=== PATIENT | female | born 1965 | race Caucasian/White ===

== ENCOUNTER 2024-12-08 11:31 | Outpatient (REF) | payer MEDICARE, MEDICAID, SELFPAY ==
[2024-12-08 17:00] LABS: Resp Syncy Virus RNA Qual PCR NEGATIVE (Negative); SARS COV2 PCR INHOUSE NEGATIVE (Negative)
== END 2024-12-08 11:32 | disposition home or self-care (01) ==
LOC: HO.LAB 11:31
PROVIDERS: Nurse Practitioner Family; PCP Internal Medicine
DX: R42 Dizziness and giddiness (principal); R11.2 Nausea with vomiting, unspecified; R63.0 Anorexia; R52 Pain, unspecified; Z79.899 Other long term (current) drug therapy
CPT/HCPCS: 87637; 99212

== ENCOUNTER 2024-12-08 11:31 | Outpatient (AMB) | payer MEDICARE, MEDICAID, SELFPAY ==
--- NOTE | 2024-12-08 11:56 | AM.OFFWIN_ITS ---
Intake Vital Signs 12/08/24 11:58 Height 5 ft Weight 147 lb BMI 28.7 BP 106/70 Blood Pressure Location Rt brachial Position Sitting Pulse 106 H Pulse Source Pulse Oximeter Temp 98.1 F Temp Source Oral Pulse Oximetry (%) 99 Oxygen Delivery Method Room Air Intake Visit Reasons: EP Body aches, dizzy, nausea Intake Note: pt presents with body aches, dizziness and nausea without vomiting for 5 days Allergies No Known Allergies Allergy (Verified 12/08/24 11:59) Medication List - Last Reconciled 12/08/24 by Mindy June NP amitriptyline 25 mg PO BEDTIME escitalopram oxalate 10 mg PO DAILY famotidine 20 mg PO DAILY PRN metoprolol succinate ER 25 mg PO DAILY Do you need a note to return to daycare/school/sports/work: No HPI HPI Comments History of Present Illness Details 59 y/o female presents with 5 days of UR I symptoms. Reports generalized body aches, dizziness, nausea, vomiting, and poor appetite. Unable to keep food or fluids down. Recently received COVID and influenza vaccines. Denies recent sick contacts. Has been resting and hydrating at home. [facility] Medical History (Updated 12/08/24 @ 12:49 by Mindy June, IGOR) Acute respiratory disease Physical Exam Vital Signs: Last Vital Signs Temp 98.1 F 12/08/24 11:58 Pulse 106 H 12/08/24 11:58 BP 106/70 12/08/24 11:58 Pulse Ox 99 12/08/24 11:58 Oxygen Delivery Method Room Air 12/08/24 11:58 BMI result Body Mass Index 28.7 Const General: no acute distress Nutritional Appearance: well nourished Orientation/consciousness: patient oriented x3 HEENT Head: Yes normocephalic Ears: external ears normal and TM abnormal bulging bilateral and with fluid behind the TM bilateral General nose exam: Abnormal mucous membranes and turbinates present erythematous Face and sinus: Yes sinuses nontender Mouth: moist mucous membranes Throat: Yes uvula midline Resp Effort & Inspection: normal respiratory effort Auscultation: clear to auscultation bilaterally, no crackles, no rales, no rhonchi and no wheezes Cardio Heart sounds: S1 normal heart sound present and S2 normal heart sound present Neuro General: patient oriented x3, gait normal and moves all extremities Psych Speech and movement: Normal speech and movement present Assessment & Plan Assessment & Plan (1) Acute respiratory disease: Code(s): J06.9 - Acute upper respiratory infection, unspecified Plan: Likely viral URI with dehydration secondary to persistent vomiting. Consider gastroenteritis, post-vaccine reaction, influenza, or COVID-19. Encourage oral hydration; and Resting. Symptomatic management: antiemetics, acetaminophen PRN. Monitor for red flags: worsening dizziness, hypotension, altered mental status, persistent vomiting, or high fever. Orders: Orders SARS-CoV2/FLU/RSV Today J06.9 - Acute upper respiratory infection, unspecified Medications: New ondansetron 8 mg PO Q8H 30 tabs 0RF J06.9 - Acute upper respiratory infection, unspecified Coding Level of Care Code Est Pt Level 4 (91061) Diagnoses Acute respiratory disease J06.9 Time Spent (min) 20
[2024-12-08 11:58] VITALS: BP 106/70; PULSE 106; TEMP 36.7; O2SAT 99; BMI 28.7
--- OUTSIDE RECORDS SUMMARY | 2024-12-08 14:37 | XMS_ITS | Encounter Summary ---
Author Organization [employer] Address [address] [facility] 7 [place] [address] Care Team Providers Care Fabrication And Assembly Supervisor Name Role Phone Unavailable Primary Care Provider Unavailabl e Encounter Details Date Type Department Care Team (Latest Contact Info) Description 04/05/2020 [facility] Dental, Provider, DDS Social History Tobacco Use Types Packs/Day Years Used Date Smoking Tobacco: Never Assessed Comments Unknown Sex and Gender Information Value Date Recorded Sex Assigned at Choose not to disclose 3:48 PM EST Legal Sex Female 5:37 PM EDT Gender Identity Choose not to disclose 3:48 PM EST Sexual Orientation Choose not to disclose 2022 3:48 PM EST documented as of this encounter Plan of Treatment Upcoming Encounters Date Type Department Care Team (Late st Contact Info) Description 04/13/2025 8:30 AM EDT Office Visit Julio [facility] [address] [place] [address] Estephanie Morgan, VANNESA [address] [place] [address] documented as of this encounter Visit Diagnoses Not on filedocumented in this encounter Care Teams Fabrication And Assembly Supervisor Relationship Specialty Start Date End Date Fatemeh [facility] [address] [facility] [address], [place] [address] Primary Care Provider 04/07/22 documented as of this encounter
--- OUTSIDE RECORDS SUMMARY | 2024-12-08 14:37 | XMS_ITS | Encounter Summary ---
Author Organization [employer] Address [address] [facility] 7 [place] [address] Care Team Providers Care Duct Layer Name Role Phone Unavailable Primary Care Provider Unavailabl e Encounter Details Date Type Department Care Team (Latest Contact Info) Description 10/21/2021 [facility] Dental, Provider, DDS Social [...] 04/13/2025 8:30 AM EDT Office Visit Julio [facility] [address] [place] [address] Estephanie Morgan, VANNESA [address] [place] [address] documented as of this encounter Visit Diagnoses Not on filedocumented in this encounter Care Teams Duct Layer Relationship Specialty Start Date End Date Fatemeh [facility] [address] [facility] [address], [place] [address] Primary Care Provider 04/07/22 documented as of this encounter
--- OUTSIDE RECORDS SUMMARY | 2024-12-08 14:37 | XMS_ITS | Encounter Summary ---
Author Organization [employer] Address [address] [facility] [address] [place] [address] Care Team Providers Care Real Estate Legal Secretary Name Role Phone Unavailable Primary Care Provider Unavailabl e Encounter Details Date Type Department Care Team (Latest Contact Info) Description 10/08/2020 [facility] Dental, Provider, DDS Social [...] 04/13/2025 8:30 AM EDT Office Visit Julio [facility] [address] [place] [address] Estephanie Morgan, VANNESA [address] [place] [address] documented as of this encounter Visit Diagnoses Not on filedocumented in this encounter Care Teams Real Estate Legal Secretary Relationship Specialty Start Date End Date Fatemeh [facility] [address] [facility] [address], [place] [address] Primary Care Provider 04/07/22 documented as of this encounter
--- OUTSIDE RECORDS SUMMARY | 2024-12-08 14:37 | XMS_ITS | Encounter Summary ---
Author Organization [employer] Address [address] [facility] 7 [place] [address] Care Team Providers Care Subpoena Server Name Role Phone Unavailable Primary Care Provider Unavailabl e Encounter Details Date Type Department Care Team (Latest Contact Info) Description 04/07/2019 [facility] Dental, Provider, DDS Social History Tobacco Use Types Packs/Day Years Used Date Smoking Tobacco: Never Assessed Comments Unknown Sex and Gender Information Value Date Recorded Sex Assigned at Choose not to disclose 3:48 PM EST Legal Sex Female 5:37 PM EDT Gender Identity Choose not to disclose 3 3:48 PM EST Sexual Orientation Choose not to disclose 2022 3:48 PM EST documented as of this encounter Plan of Treatment Upcoming Encounters Date Type Department Care Team (Late st Contact Info) Description 04/13/2025 8:30 AM EDT Office Visit Julio [facility] OPT[facility] [address] [place] [address] Estephanie Morgan, VANNESA [address] [place] [address] documented as of this encounter Visit Diagnoses Not on filedocumented in this encounter Care Teams Subpoena Server Relationship Specialty Start Date End Date Fatemeh [facility] [address] [facility] [address], [place] [address] Primary Care Provider 04/07/22 documented as of this encounter
--- OUTSIDE RECORDS SUMMARY | 2024-12-08 14:37 | XMS_ITS | Encounter Summary ---
Author Organization [employer] Address [address] [facility] [address] [place] [address] Care Team Providers Care Painting Technician Name Role Phone Unavailable Primary Care Provider Unavailabl e Encounter Details Date Type Department Care Team (Latest Contact Info) Description 10/01/2018 [facility] Dental, Provider, DDS Social [...] 04/13/2025 8:30 AM EDT Office Visit Julio [facility] [address] [place] [address] Estephanie Morgan, VANNESA [address] [place] [address] documented as of this encounter Visit Diagnoses Not on filedocumented in this encounter Care Teams Painting Technician Relationship Specialty Start Date End Date Fatemeh [facility] [address] [facility] [address], [place] [address] Primary Care Provider 04/07/22 documented as of this encounter
--- OUTSIDE RECORDS SUMMARY | 2024-12-08 14:37 | XMS_ITS | Clinical Summary ---
Author Organization [employer] Address [address] [facility] [address] [place] [address] Care Team Providers Care Manganese Breaker Name Role Phone Unavailable Primary Care Provider Unavailabl e Allergies No known active allergies Medications albuterol 108 (90 Base) MCG/ACT inhaler INHALE 1 TO 2 PUFFS BY MOUTH EVERY 4 TO 6 HOURS NEEDED 05/04/2021 Active ibuprofen 200 MG tablet Take 200 mg by mouth. prn Active metoprolol tartrate (Lopressor) 50 MG tablet Take 50 mg by mouth before evening meal. Active escitalopram (Lexapro) 10 MG tablet Take 15 mg by mouth in the morning. Active famotidine (Pepcid) 20 MG tablet Take 20 mg by mouth Once per day. 08/07/2023 Active cyanocobalamin (Vitamin B-12) 100 MCG tablet Take 100 mcg by mouth Once per day. Active folic acid (Folvite) 1 MG tablet Take by mouth Once per day. Active Active Problems Problem Noted Date Diagnosed Date Personal history of malignant neoplasm of breast 04/09/2024 Dry eye syndrome of both eyes 04/07/2022 Pseudophakia of both eyes 02/14/2022 Family History Medical History Relation Name Comments Cataracts Father Macular degeneration Father Cataracts Mother Cataracts Sister Macular degeneration Sister Relation Name Status Comments Father Mother Sister Social History Tobacco Use Types Packs/Day Years Used Date Smoking Tobacco: Former Cigarettes Smokeless Tobacco: Never Tobacco Cessation:Counseling Given: Not Answered Alcohol Use Standard Drinks/Week Comments Never 0 (1 standard drink = 0.6 oz pur e alcohol) Comments Unknown Sex and Gender Information Value Date Recorded Sex Assigned at Choose not to disclose 3:48 PM EST Legal Sex Female 5:37 PM EDT Gender Identity Choose not to disclose 3:48 PM EST Sexual Orientation Choose not to disclose 2022 3:48 PM EST Last Filed Vital Signs Vital Sign Reading Time Taken Comments Blood Pressure 120/82 04/09/2024 10:15 AM EST Pulse 83 04/09/2023 9:56 AM EST Temperature 36.1 C (97 F) 04/09/2024 10:15 AM EST Respiratory Rate - - Oxygen Saturation - - Inhaled Oxygen Concentration - - Weight - - Height - - Body Mass Index - - Plan of Treatment Upcoming Encounters Date Type Department Care Team (Late st Contact Info) Description 04/13/2025 8:30 AM EDT Office Visit Julio [facility] OPT[facility] [address] [place] [address] Estephanie Morgan, OD [address] [place] [address] Health Maintenance Due Date Last Done Comments CT Colonography 1963 Colonoscopy 1963 Colorectal Cancer Screening 1963 Depression Screening 1963 FIT DNA/Cologuard 1963 FIT 1963 FOBT 1963 HIV Screening 1963 Lipid Panel 1963 SDOH Screening 1963 Sigmoidoscopy 1963 Disability Screening 1963 Alcohol/Substance Use Screening 1975 Hepatitis C Screening 1981 Pap Smear 02/14/1984 Cervical Cancer Screening 1993 HPV/Cotest 1993 Mammogram 2003 Pneumococcal Vaccine: 50+ Years (2 of 2 - PCV) 2013 03/09/2008 Dental X-Ray: Full Mouth 03/13/2021 03/12/2018 Influenza Vaccine (#1) 2024 , 12/13/2022, 09/26/2021, Additional history exists Dental Oral Exam 11/22/2024 05/22/2024, , 03/21/2023, Additional history exists Dental Prophylaxis 11/22/2024 05/22/2024, 1 , 03/21/2023, Additional history exists Tobacco Screening 05/22/2025 05/22/2024 Dental X-Ray: Bitewings 05/23/2025 05/23/19 25, 11/23/2023, 03/21/2023, Additional history exists DTaP/Tdap/Td Vaccines (2 - Td or Tdap) 09/23/2026 09/23/2016 RSV Patients and Patients Aged 60 years or older (1 - 1-dose 75+ series) 2038 Zoster Vaccines Completed 08/21/2021, 05/30/2021 COVID-19 Vaccine Completed 10/21/2023, 09/2022, 02/11/2022, Additional history exists HIB Vaccines Aged Out No longer eligi ble based on patient's age to complete this topic HPV Vaccines Aged Out No longer eligi ble based on patient's age to complete this topic Hepatitis A Vaccines Aged Out No long er eligible based on patient's age to complete this topic Hepatitis B Vaccines Aged Out No long er eligible based on patient's age to complete this topic IPV Vaccines Aged Out No longer eligi ble based on patient's age to complete this topic Meningococcal B Vaccine Aged Out No l onger eligible based on patient's age to complete this topic Meningococcal Vaccine Aged Out No kelsey angy eligible based on patient's age to complete this topic RSV under 20 months Aged Out No longe r eligible based on patient's age to complete this topic Rotavirus Vaccines Aged Out No longer eligible based on patient's age to complete this topic Procedures Procedure Name Priority Date/Time Associated Diagnosis Comments Full PROPHYLAXIS - ADULT Routine 025 12:00 PM EDT BITEWINGS - 4 RADIOGRAPHIC IMAGES Routine 05/22/2024 12:00 PM EDT PERIODIC ORAL EVALUATION - ESTABLISHED PATIENT Routine 05/22/2024 12:00 PM EDT INTRAORAL - COMPLETE SERIES OF RADIOGRAPHIC IMAGES Routine 03/12/2018 12:00 AM EST from Last 3 Months or Most Recently Relevant to Health Maintenance Insurance [facility] STANDARD MEDICARE MEDICARE [facility]AL[facility] MEDICAID [facility] MEDICARE [facility] STANDARD Care Teams Manganese Breaker Relationship Specialty Start Date End Date Fatemeh Leyva [facility] [address] [facility] [address], [place] [address] Primary Care Provider 04/07/22
--- OUTSIDE RECORDS SUMMARY | 2024-12-08 14:37 | XMS_ITS | Data Portability ---
Author Organization [facility], [facility] [address] Address [address] [place] [address] Care Team Providers Care Rheostat Assembler Name Role Phone MALLORY MERRITT Primary Care Provider Assessment No assessment recorded. Plan of Treatment Reminders Order Date Submit Date Provider Last Modified By Organization Details Last Modified Time Details Appointments None recorded. Lab glucose, fingerstick , blood 2022 023 [email or web address] 247 _[facility], [address] [place] [address], [phone], 3 15:30:48 urinal[address], dipstick [address] [email or web address], [address] [place] [address], [phone], 3 15:30:49 CBC w/ auto diff 2022 023 [facility] [address] [place], [address], 3 06:08:01 CMP, serum or plasma 2022 023 [place] [facility] [address] [place], [address], 3 08:07:25 hepatic function panel, serum 2022 023 [facility] [facility] [facility] [place], [address], 3 08:07:26 Referral emergency medicine referral 2022 023 [email or web address] 26 Not available 09:07:30 Procedures None recorded. Surgeries None recorded. Imaging electrocard iogram 2022 023 [email or web address] 21005[facility], [address] [facility], [place], [address], 15:39:25 Medication Orders None recorded. Patient TargetsNo targets recorded. Patient Instructions Encounter Date Encounter Id Patient Instructions Last Modified By Organization Details Last Modified Time 04/12/2022 [id number] dizziness: care instructions [email or web address] Not available 04/12/2022 15:30:48 go to emergency room [id number] Not available 04/12/2022 15:34:26 Reason for Referral Emergency Medicine Referral for Dizziness Referring Physician: [facility], Encounter Date: 04/12/2022 Results Created Date Observation Date Name Description Value Unit Range Abnormal Flag Note LastModifiedBy Organization Detail LastModifiedTime 04/13/1904/13/2022 CBC WITH DIFFE RENTI AL/PL ATELE T WBC 7.5 x10e3 /uL 3.4-10 .8 Not Available [facility] ([facility]) [address] [place], [address], 04/13/2022 06:08:01 04/13/1904/13/2022 CBC WITH DIFFE RENTI AL/PL ATELE T RBC 3.89 x10e6 /uL 3.77-5 .28 Not Available [facility] ([facility]) [address] [place], [address], 04/13/2022 06:08:01 04/13/1904/13/2022 CBC WITH DIFFE RENTI AL/PL ATELE T hemoglobin 13.7 g/dL 11.1-1 5.9 Not Available [facility] ([facility]) [address] [place], [address], 04/13/2022 06:08:01 04/13/19 23 04/13/2022 CBC WITH DIFFE RENTI AL/PL ATELE T hematocrit 39.5 % 34.0-4 6.6 Not Available [facility] ([facility]) [address] [facility], [place], [address], 04/13/2022 06:08:01 04/13/19 23 04/13/2022 CBC WITH DIFFE RENTI AL/PL ATELE T MCV 102 fL 79-97 above high normal Not Available [facility] ([facility]) [address] [place], [address], 04/13/2022 06:08:01 04/13/19 23 04/13/2022 CBC WITH DIFFE RENTI AL/PL ATELE T MCH 35.2 pg 26.6-3 3.0 above high normal Not Available [facility] ([facility]) [address] [facility], [place], [address], 04/13/2022 06:08:01 04/13/19 23 04/13/2022 CBC WITH DIFFE RENTI AL/PL ATELE T MCHC 34.7 g/dL 31.5-3 5.7 Not Available [facility] ([facility]) [address] [place], [address], 04/13/2022 06:08:01 04/13/19 23 04/13/2022 CBC WITH DIFFE RENTI AL/PL ATELE T RDW 13.2 % 11.7-1 5.4 Not Available [facility] ([facility]) [address] [place], [address], 04/13/2022 06:08:01 04/13/1904/13/2022 CBC WITH DIFFE RENTI AL/PL ATELE T platelets 267 x10e3 /uL 150-45 0 Not Available [facility] ([facility]) [address] [place], [address], 04/13/2022 06:08:01 04/13/19 23 04/13/2022 CBC WITH DIFFE RENTI AL/PL ATELE T neutrophils 80 % not estab. Not Available [facility] ([facility]) [address] [facility], [place], [address], 04/13/2022 06:08:01 04/13/19 23 04/13/2022 CBC WITH DIFFE RENTI AL/PL ATELE T lymphs 13 % not estab. Not Available [facility] ([facility]) [address] [facility], [place], [address], 04/13/2022 06:08:01 04/13/19 23 04/13/2022 CBC WITH DIFFE RENTI AL/PL ATELE T monocytes 6 % not estab. Not Available [facility] ([facility]) [address] [facility], [place], [address], 04/13/2022 06:08:01 04/13/19 23 04/13/2022 CBC WITH DIFFE RENTI AL/PL ATELE T eos 0 % not estab. Not Available [facility] ([facility]) [address] [facility], [place], [address], 04/13/2022 06:08:01 04/13/19 23 04/13/2022 CBC WITH DIFFE RENTI AL/PL ATELE T basos 1 % not estab. Not Available [facility] ([facility]) [address] [facility], [place], [address], 04/13/2022 06:08:01 04/13/19 23 04/13/2022 CBC WITH DIFFE RENTI AL/PL ATELE T immature cells [employer]ER Not Available [facility] ([facility]) [address] [facility], [place], [address], 04/13/2022 06:08:01 04/13/19 23 04/13/2022 CBC WITH DIFFE RENTI AL/PL ATELE T neutrophils (absolute) 6.0 x10e3 /uL 1.4-7. 0 Not Available [facility] ([facility]) [address] [facility], [place], [address], 04/13/2022 06:08:01 04/13/19 23 04/13/2022 CBC WITH DIFFE RENTI AL/PL ATELE T lymphs (absolute) 1.0 x10e3 /uL 0.7-3. 1 Not Available [facility] ([facility]) [address] [facility], [place], [address], 04/13/2022 06:08:01 04/13/1904/13/2022 CBC WITH DIFFE RENTI AL/PL ATELE T monocytes(ab solute) 0.4 x10e3 /uL 0.1-0. 9 Not Available [facility] ([facility]) [address] [facility], [place], [address], 04/13/2022 06:08:01 04/13/19 23 04/13/2022 CBC WITH DIFFE RENTI AL/PL ATELE T eos (absolute) 0.0 x10e3 /uL 0.0-0. 4 Not Available [facility] ([facility]) [address] [facility], [place], [address], 04/13/2022 06:08:01 04/13/19 23 04/13/2022 CBC WITH DIFFE RENTI AL/PL ATELE T baso (absolute) 0.0 x10e3 /uL 0.0-0. 2 Not Available [facility] ([facility]) [address] [facility], [place], [address], 04/13/2022 06:08:01 04/13/19 23 04/13/2022 CBC WITH DIFFE RENTI AL/PL ATELE T immature granulocytes 0 % not estab. Not Available [facility] ([facility]) [address] [facility], [place], [address], 04/13/2022 06:08:01 04/13/19 23 04/13/2022 CBC WITH DIFFE RENTI AL/PL ATELE T immature grans (abs) 0.0 x10e3 /uL 0.0-0. 1 Not Available [facility] ([facility]) [address] [facility], [place], [address], 04/13/2022 06:08:01 04/13/19 23 04/13/2022 CBC WITH DIFFE RENTI AL/PL ATELE T NRBC [employer]ER Not Available [facility] ([facility]) [address] [facility], [place], [address], 04/13/2022 06:08:01 04/13/19 23 04/13/2022 CBC WITH DIFFE RENTI AL/PL ATELE T hematology comments: [employer]ER Not Available [facility] ([facility]) [address] [facility], [place], [address], 04/13/2022 06:08:01 04/13/19 23 04/13/2022 COMP. METAB OLIC PANEL (14) glucose 130 mg/dL 70-99 above high normal Not Available [facility] ([facility]) [address] [place], [address], 04/13/2022 08:07:25 04/13/19 23 04/13/2022 COMP. METAB OLIC PANEL (14) BUN 6 mg/dL 6-24 Not Available [facility] ([facility]) [address] [place], [address], 04/13/2022 08:07:25 04/13/19 23 04/13/2022 COMP. METAB OLIC PANEL (14) creatinine 0.58 mg/dL 0.57-1 .00 Not Available [facility] ([facility]) [address] [place], [address], 04/13/2022 08:07:25 04/13/19 23 04/13/2022 COMP. METAB OLIC PANEL (14) eGFR 104 mL/mi n/1.7 3 >59 Not Available [facility] ([facility]) [address] [facility] [place], [address], 04/13/2022 08:07:25 04/13/19 23 04/13/2022 COMP. METAB OLIC PANEL (14) BUN/creatini ne ratio 10 9-23 Not Available [facility] ([facility]) [address] [facility] [place], [address], 04/13/2022 08:07:25 04/13/19 23 04/13/2022 COMP. METAB OLIC PANEL (14) sodium 134 mmol/ L 134-14 4 Not Available [facility] ([facility]) [address] [facility] [place], [address], 04/13/2022 08:07:25 04/13/19 23 04/13/2022 COMP. METAB OLIC PANEL (14) potassium 4.2 mmol/ L 3.5-5. 2 Not Available [facility] ([facility]) [address] [facility] [place], [address], 04/13/2022 08:07:25 04/13/19 23 04/13/2022 COMP. METAB OLIC PANEL (14) chloride 92 mmol/ L 96-106 below low normal Not Available [facility] ([facility]) [address] [place], [address], 04/13/2022 08:07:25 04/13/19 23 04/13/2022 COMP. METAB OLIC PANEL (14) carbon dioxide, total 26 mmol/ L 20-29 Not Available [facility] ([facility]) [address] [facility] [place], [address], 04/13/2022 08:07:25 04/13/19 23 04/13/2022 COMP. METAB OLIC PANEL (14) calcium 10.1 mg/dL 8.7-10 .2 Not Available [facility] ([facility]) [address] [place], [address], 04/13/2022 08:07:25 04/13/19 23 04/13/2022 COMP. METAB OLIC PANEL (14) protein, total 8.0 g/dL 6.0-8. 5 Not Available [facility] ([facility]) [address] [place], [address], 04/13/2022 08:07:25 04/13/19 23 04/13/2022 COMP. METAB OLIC PANEL (14) albumin 5.1 g/dL 3.8-4. 9 above high normal Not Available [facility] ([facility]) [address] [place], [address], 04/13/2022 08:07:25 04/13/19 23 04/13/2022 COMP. METAB OLIC PANEL (14) globulin, total 2.9 g/dL 1.5-4. 5 Not Available [facility] ([facility]) [address] [place], [address], 04/13/2022 08:07:25 04/13/19 23 04/13/2022 COMP. METAB OLIC PANEL (14) A/G ratio 1.8 1.2-2. 2 Not Available [facility] ([facility]) [address] [facility] [place], [address], 04/13/2022 08:07:25 04/13/19 23 04/13/2022 COMP. METAB OLIC PANEL (14) bilirubin, total 0.4 mg/dL 0.0-1. 2 Not Available [facility] ([facility]) [address] [place], [address], 04/13/2022 08:07:25 04/13/19 23 04/13/2022 COMP. METAB OLIC PANEL (14) alkaline phosphatase 52 IU/L 44-121 Not Available [facility] ([facility]) [address] [place], [address], 04/13/2022 08:07:25 04/13/19 23 04/13/2022 COMP. METAB OLIC PANEL (14) AST (SGOT) 35 IU/L 0-40 Not Available [facility] ([facility]) [address] [facility], [place], [address], 04/13/2022 08:07:25 04/13/19 23 04/13/2022 COMP. METAB OLIC PANEL (14) ALT (SGPT) 20 IU/L 0-32 Not Available [facility] ([facility]) [address] [facility], [place], [address], 04/13/2022 08:07:25 04/13/19 23 04/13/2022 HEPAT IC FUNCT ION PANEL (7) bilirubin, direct 0.12 mg/dL 0.00-0 .40 Not Available [facility] ([facility]) [address] [place], [address], 04/13/2022 08:07:26 04/13/19 23 04/12/2022 urina lysis , dipst ick Unknown Analyte Normal = light yellow Not Available [address] [place] [address], [address], 04/12/2022 14:17:02 04/13/19 23 04/12/2022 urina lysis , dipst ick Unknown Analyte Normal = clear Not Available [address] [place] [address], [address], 04/12/2022 14:17:02 04/13/19 23 04/12/2022 urina lysis , dipst ick Unknown Analyte Normal = negati ve Not Available [address] [place] [address], [address], 04/12/2022 14:17:02 04/13/19 23 04/12/2022 urina lysis , dipst ick Unknown Analyte Normal = Negati ve Not Available [facility], [place], [address], 04/12/2022 14:17:02 04/13/19 23 04/12/2022 urina lysis , dipst ick Unknown Analyte Normal = Negati ve Not Available [facility] [address], [place], [place], [address], 04/12/2022 14:17:02 04/13/1904/12/2022 urina lysis , dipst ick Unknown Analyte Normal = 1.010, 1.015, 1.020 Not Available bridget lopez [facility], [place], [place], [address], 04/12/2022 14:17:02 04/13/19 23 04/12/2022 urina lysis , dipst ick Unknown Analyte Normal = Negati ve Not Available bridget lopez [address], [place], [place], [address], 04/12/2022 14:17:02 04/13/1904/12/2022 urina lysis , dipst ick Unknown Analyte Normal = 6.5, 7.0, 7.5, 8.0 Not Available [facility] [address], [place], [address], 04/12/2022 14:17:02 04/13/1904/12/2022 urina lysis , dipst ick Unknown Analyte Normal = Negati ve Not Available bridget lopez [address], [place], [address], 04/12/2022 14:17:02 04/13/19 23 04/12/2022 urina lysis , dipst ick Unknown Analyte Normal = Negati ve Not Available bridget lopez [address], [place], [address], 04/12/2022 14:17:02 04/13/19 23 04/12/2022 urina lysis , dipst ick Unknown Analyte Normal = Negati ve Not Available bridget lopez [address], [place], [address], 04/12/2022 14:17:02 04/13/19 23 04/12/2022 urina lysis , dipst ick Unknown Analyte Normal = 0.2, 1.0 Not Available bridget [address], [place], [address], 04/12/2022 14:17:02 04/13/19 23 04/12/2022 urina lysis , dipst ick Unknown Analyte Yellow Not Available [address], [place], [address], 04/12/2022 14:17:02 04/13/19 23 04/12/2022 urina lysis , dipst ick Unknown Analyte Clear Not Available [facility] [address], [place], [address], 04/12/2022 14:17:02 04/13/19 23 04/12/2022 urina lysis , dipst ick Unknown Analyte Negati ve Not Available bridget [address], [place], [address], 04/12/2022 14:17:02 04/13/19 23 04/12/2022 urina lysis , dipst ick Unknown Analyte Negati ve Not Available bridget [address], [place], [address], 04/12/2022 14:17:02 04/13/19 23 04/12/2022 urina lysis , dipst ick Unknown Analyte Trace Not Available [address], [place], [address], 04/12/2022 14:17:02 04/13/19 23 04/12/2022 urina lysis , dipst ick Unknown Analyte 1.030 Not Available [facility] [address], [place], [address], 04/12/2022 14:17:02 04/13/19 23 04/12/2022 urina lysis , dipst ick Unknown Analyte Trace- intact Not Available bridget [address], [place], [address], 04/12/2022 14:17:02 04/13/19 23 04/12/2022 urina lysis , dipst ick Unknown Analyte 6.0 Not Available [address], [place], [address], 04/12/2022 14:17:02 04/13/19 23 04/12/2022 urina lysis , dipst ick Unknown Analyte 300 mg/dL Not Available bridget lopez [address], [place], [address], 04/12/2022 14:17:02 04/13/19 23 04/12/2022 urina lysis , dipst ick Unknown Analyte 0.2 E.U./d L Not Available bridget lopez [address], [place], [address], 04/12/2022 14:17:02 04/13/19 23 04/12/2022 urina lysis , dipst ick Unknown Analyte Negati ve Not Available bridget lopez [address], [place], [address], 04/12/2022 14:17:02 04/13/19 23 04/12/2022 urina lysis , dipst ick Unknown Analyte Negati ve Not Available bridget lopez [address], [place], [address], 04/12/2022 14:17:02 04/13/1904/12/2022 gluco se, montye rstic k, blood blood sugar - non fasting 142 mg/dL 80-140 = normal Not Available braxton [address], [place], [address], 04/12/2022 14:16:49 04/13/19 23 04/12/2022 gluco se, finge rstic k, blood blood sugar - fasting mg/dL 80-125 = normal Not Available braxton [address], [place], [address], 04/12/2022 14:16:49 04/13/19 23 04/12/2022 elect rocar diogr am No observ ation record ed. [email or web address] pietro sy [address], [address], 04/12/2022 15:30:50 04/13/19 elect rocar diogr am No observ ation record ed. braxton [address], [address], 04/12/2022 18:38:23 Result Notes None recorded. Problems Name Problem SNOMED Code Status Onset Date Resolution Date Notes Provider Name and Address Organization Details Recorded Time Anxiety 99759410 Active 2022 [facility] 13:54:18 Malignant neoplasm of breast 844209550 Completed 202204/12/2022 [facility] 3 13:55:41 Problem Notes None recorded. Procedures Surgical History Date Name Laterality Status Provider Name and Address Organization Details Recorded Time excision of bilateral breasts completed Vandana Wooyossi PA - [facility] 04/12/2022 13:56:52 extraction of cataract completed Vandana Cleaningrobin MCKEON - [facility] 04/12/2022 13:57:01 Imaging Results None recorded. Procedure Notes None recorded. Medical Equipment None Reported. Allergies No known drug allergies Medications Name Sig Start Date Stop Date Status Note LastModified by Organization Details LastModified Time amoxicillin active having 2 teeth extracted on sunday and was prescribed by dentist Not Available Not Available Not Available Ativan active Not Available Not Availa ble Not Available Topamax active Not Available Not Avail able Not Available Vitals Date Recorded Body height Body mass index (BMI) Body weight Pain severity - 0-10 verbal numeric rating [Score] - Reported Oxygen saturation Oxygen saturation in Arterial blood by Pulse oximetry Heart rate Respiratory rate Body temperature Systolic And Diastolic Provider Name and Address Organization Details Last Updated DateTime 152.4 cm 29.9 kg/m2 89694.6 3 g 0 97 % 97 % 141 /min 18 /min 98.2 [degF] 162/93 mm[Hg] Vandana Wooyossi PA - [facility] 13:59:11 Social History Question Answer Notes 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 5-7 times per week Information not available 04/12/2022 Do you use any illicit or recreational drugs? No Information not available 04/12/2022 Do you or have you ever used any other forms of tobacco or nicotine? No Information not available 04/12/2022 What is your level of alcohol consumption? Moderate Information not available 04/12/2022 Mental Status None recorded. Family History Relationship Description Onset Age of this Age Resolved Age Notes LastModified by Organization Details LastModified Time Father Heart disease [email or web address] Not available 03/08/ 2023 13:54:57 Father Hypertensive disorder [email or web address] Not available 2022 13:55:08 Mother Heart disease [email or web address] Not available 2022 13:54:57 Mother Hypertensive disorder [email or web address] Not available 2022 13:55:08 Sister Hypertensive disorder [email or web address] Not available 2022 13:55:22 Medical History No medical history recorded. Gynecological HistoryNo gynecological history recorded. Obstetrics History GPAL:G 0 P 0 0 0 0 Immunizations Vaccine Type Date Status Note Provider Nam e and Address Organization Details Recorded Time zoster recombinant 05/30/2021 completed Vandana Wooe null, PA - [facility] 04/12/2022 13:53:01 zoster recombinant 08/21/2021 completed Vandana Wooe null, PA - [facility] 04/12/2022 13:53:01 COVID-19, mRNA, LNP-S, PF, 100 mcg/0.5mL dose or 50 mcg/0.25mL dose 09/26/2021 completed Vandana Wooe null, PA - [facility] 04/12/2022 13:53:01 COVID-19 vaccine, vector-nr, rS-Ad26, PF, 0.5 mL 05/13/2020 completed Vandana Wooe null, PA - [facility] 04/12/2022 13:53:01 COVID-19 vaccine, vector-nr, rS-Ad26, PF, 0.5 mL 01/14/2021 completed Vandana Wooe null, PA - [facility] 04/12/2022 13:53:01 COVID-19, mRNA, LNP-S, bivalent, PF, 50 mcg/0.5 mL or 25mcg/0.25 mL dose 02/11/2022 completed Vandana Wooe null, PA - [facility] 04/12/2022 13:53:01 Tdap 09/23/2016 completed Vandana Wood null, PA - [facility] 04/12/2022 13:53:01 Influenza, split virus, trivalent, PF 09/23/2016 completed Vandana Wooe null, PA - [facility] 04/12/2022 13:53:01 Influenza, split virus, trivalent, PF 10/05/2014 completed Vandana Monfette null, PA - [facility] 04/12/2022 13:53:01 Influenza, split virus, quadrivalent, PF 09/26/2021 completed Vandana Monfette null, PA - [facility] 04/12/2022 13:53:01 Influenza, split virus, quadrivalent, PF 10/05/2015 completed Vandana Monfette null, PA - [facility] 04/12/2022 13:53:01 Influenza, split virus, quadrivalent, PF 10/19/2020 completed Vandana Monfette null, PA - [facility] 04/12/2022 13:53:01 Influenza, split virus, quadrivalent, PF 10/28/2019 completed Vandana Monfette null, PA - [facility] 04/12/2022 13:53:01 Past Encounters Encounter ID Performer Location Encounter Start Date Encounter Closed Date Diagnosis/Indication Diagnosis SNOMED-CT Code Diagnosis ICD10 Code Diagnosis IMO Codes Diagnosis Note [id number] ASHLEY LEVY MD [address] [address] [place] [address] 04/12/2022 13:46:45 04/12/2022 15:39:25 Dizziness 778089516 R42 Health Concerns Section Related Observation LastModified by Organization Detai ls LastModified Time None Recorded Concern Status LastModified by Organization Details LastModified Time None Recorded Advance Directives Directive None Recorded Payers Insurance Date Sequence Insurance Name Policy Number Policy [place] Covered Member ID [place] Member ID Guarantor Name 06/08/2022 2 [place] [facility] Nan E Henry [id number] Lynn Henry 04/12/2022 1 [place] B-[place] [employer] Nan E Henry [id number] Lynn Floresd Notes Date Note Type Note Provider Name and Address Organization Details Recorded Time 04/12/2022 text/html Dizziness UCReported by PatientHPIFor quality, patient reportscannot identify. For associated symptoms, patient reportsno blurred vision,no eye pain,no ringing in the ears,no pressure in ears,no noise in the ears,no feelings of fullness in the ears,no headache,no head pressure,no vomiting, andno facial numbness.ROS as noted in the HPI ASHLEY LEVY MD [address] [place], [address], [place] - [facility] 04/12/2022 15:41:08 OBGyn Episode No OBEpisode recorded.
--- OUTSIDE RECORDS SUMMARY | 2024-12-08 14:37 | XMS_ITS | Encounter Summary ---
Author Organization [employer] Address [address] [facility] 7 [place] [address] Care Team Providers Care Spot Machine Operator Name Role Phone Unavailable Primary Care Provider Unavailabl e Encounter Details Date Type Department Care Team (Latest Contact Info) Description 04/14/2021 Abstract [facility] CONVERSIONS Dental, Provider, DDS Social [...] 04/13/2025 8:30 AM EDT Office Visit Julio [facility] [address] [place] [address] Estephanie Morgan, VANNESA [address] [place] [address] documented as of this encounter Visit Diagnoses Not on filedocumented in this encounter Care Teams Spot Machine Operator Relationship Specialty Start Date End Date Fatemeh [facility] [address] [facility] [address], [place] [address] Primary Care Provider 04/07/22 documented as of this encounter
--- OUTSIDE RECORDS SUMMARY | 2024-12-08 14:37 | XMS_ITS | Encounter Summary ---
Author Organization [email or web address] Address [address] [facility] [address] [place] [address] Care Team Providers Care Dye Tank Tender Name Role Phone Unavailable Primary Care Provider Unavailabl e Encounter Details Date Type Department Care Team (Latest Contact Info) Description 03/12/2018 Abstract [facility] CONVERSIONS Dental, Provider, DDS Social [...] 04/13/2025 8:30 AM EDT Office Visit Julio [facility] [address] [place] [address] Estephanie Morgan, VANNESA [address] [place] [address] documented as of this encounter Visit Diagnoses Not on filedocumented in this encounter Care Teams Dye Tank Tender Relationship Specialty Start Date End Date Fatemeh [facility] [address] [facility] [address], [place] [address] Primary Care Provider 04/07/22 documented as of this encounter
== END 2024-12-08 13:15 | disposition home or self-care (01) ==
PROVIDERS: PCP Internal Medicine; Visit Provider Nurse Practitioner Family
DX: J06.9 Acute upper respiratory infection, unspecified (principal)

== ENCOUNTER 2025-01-14 14:57 | Outpatient (AMB) | payer MEDICARE, MEDICAID, SELFPAY ==
[2025-01-14 14:59] VITALS: BP 132/76; PULSE 112; TEMP 36.6; O2SAT 97; BMI 27.3
--- NOTE | 2025-01-14 14:59 | AM.OFFWIN_ITS ---
Intake Vital Signs 01/14/25 14:59 Height 5 ft Weight 140 lb BMI 27.3 BP 132/76 Blood Pressure Location Rt brachial Position Sitting Pulse 112 H Pulse Source Pulse Oximeter Temp 98 F Temp Source Oral Pulse Oximetry (%) 97 Oxygen Delivery Method Room Air Intake Visit Reasons: EP Vomitting for three days, abdominal pain Intake Note: Patient presents c/o vomiting, cramping, diarrhea & abdominal pain x1 week. Patient Tobacco Use Status: Never used Tobacco Allergies No Known Allergies Allergy (Verified 01/14/25 15:02) HPI HPI Comments History of Present Illness Details This is a 59-year-old female with a past medical history of hypertension, gastroesophageal reflux disease, anxiety and depression presenting for evaluation of nausea and vomiting. Patient denies any history of previous abdominal surgeries. Patient states that her symptoms started last Sunday when she vomited 3 times. Patient states that she has had intermittent vomiting since that time and was prescribed Zofran by her primary care physician. Patient had a single episode of diarrhea today but has not vomited since yesterday. Patient denies having any fevers, chest pain, shortness for breath, dysuria, urinary frequency, dark or bloody stools. Patient has been able to eat and drink over the past week and believes her diarrhea today may be related to eating [place] food for lunch. [facility] Medical History (Updated 01/14/25 @ 15:31 by Yudy Vallejo PA-C) Acute respiratory disease Social History Patient Tobacco Use Status: Never used Tobacco Review of Systems Const Reports no additional complaints, Denies chills, Denies fatigue and Denies fever(s) ENT Reports no additional complaints, Denies dry mouth and Denies sore throat Card Denies chest pain and Denies dyspnea Resp Denies cough and Denies dyspnea GI Reports as per HPI, Denies melena, Denies bloating, Reports diarrhea (x1), Reports nausea, Reports vomiting and Denies hematemesis Reports no additional complaints, Denies dysuria and Denies urinary urgency Musc Reports no additional complaints Skin/Breast Reports system reviewed and no additional complaints, except as documented Neuro Reports no additional complaints Psych Reports no additional complaints Endo Reports no additional complaints and Denies fatigue Amnpreet/Lymph Reports no additional complaints Aller/Immun Reports no additional complaints Physical Exam Vital Signs: BMI result Body Mass Index 27.3 Patient is afebrile. HR is 102bpm at the time of examination. Const General: cooperative, healthy appearing, comfortable, no acute distress, well developed, alert, awake, Physically active and well groomed; No acute distress, ill appearing or lethargic Nutritional Appearance: average body habitus Orientation/consciousness: patient oriented x3 and No lethargic Limitations: no limitations Resp Effort & Inspection: normal respiratory effort, able to speak in complete sentences, no audible wheezes, not labored, no respiratory distress and not tachypneic Auscultation: clear to auscultation bilaterally Cardio Rate: tachycardic (HR 102bpm) Rhythm: regular rhythm GI Inspection: Yes normal to inspection Palpation (GI): Soft to palpation, nontender, no guarding and not rigid Auscultation: normal bowel sounds General: Yes Bimanual renal exam normal bilaterally and Yes bladder normal to palpation Bimanual exam- vagina & uterus: bladder normal to palpation Skin General skin exam: no rashes or lesions noted Neuro General: patient oriented x3 Psych Appearance: grossly normal Mental Status: mental status grossly normal Insight: Good insight present (Psych) Judgement: Good judgement present (Psych) Assessment & Plan Assessment & Plan (1) Nausea vomiting and diarrhea: Comment: Patient is well-appearing, afebrile and has no abdominal pain on examination. Patient thought her Zofran was to melt on top of her tongue and she has been educated about placing medication under her tongue to dissolve. Patient has not had any active vomiting since yesterday and only single episode of diarrhea. Patient will continue to use the Zofran as prescribed by her primary care physician and stay very well hydrated with clear fluids. Viral panel is pending at this time. Code(s): R11.2 - Nausea with vomiting, unspecified; R19.7 - Diarrhea, unspecified Plan: Zofran as needed, increased clear fluids such as water and/or broth. Follow-up only as needed. Orders: Orders SARS-CoV2/FLU/RSV Today R09.89 - Other specified symptoms and signs involving the circulatory and respiratory systems Coding Level of Care Code Est Pt Level 3 (08601) Diagnoses Nausea vomiting and diarrhea R11.2; R19.7 Time Spent (min) 20
--- OUTSIDE RECORDS SUMMARY | 2025-01-14 23:29 | XMS_ITS | Encounter Summary ---
Author Organization [employer] Address [address] [place] [address] Care Team Providers Care Regulated Program Manager Name Role Phone Unavailable Primary Care Provider [...] 04/13/2025 8:30 AM EDT Office Visit Julio [facility] [address] [place] [address] Estephanie Morgan, VANNESA [address] [place] [address] documented as of this encounter Visit Diagnoses Not on filedocumented in this encounter Care Teams Regulated Program Manager Relationship Specialty Start Date End Date [facility] [address], [place] [address] Primary Care Provider 04/07/22 documented as of this encounter
--- OUTSIDE RECORDS SUMMARY | 2025-01-14 23:29 | XMS_ITS | Data Portability ---
Author Organization [facility], [facility] Address [address] [place] [address] Care Team Providers Care Developmental Specialist Name Role Phone MALLORY MERRITT Primary Care Provider Assessment No assessment recorded. Plan of Treatment Reminders Order Date Submit Date Provider Last Modified By Organization Details Last Modified Time Details Appointments None recorded. Lab glucose, fingerstick , blood [address] [facility], [address] [place] [address], [phone], 3 15:30:48 urinalysis, dipstick 2022 023 [facility], [address] [place] [address], [address], 3 15:30:49 CBC w/ auto diff 2022 023 [facility] [address] [place], [address], 3 06:08:01 CMP, serum or plasma 2022 023 [place] [facility] [address] [place], [address], 3 08:07:25 hepatic function panel, serum 2022 023 [facility] [place], [address], 3 08:07:26 Referral emergency medicine referral 2022 023 [email or web address] [id number] Not available 09:07:30 Procedures None recorded. Surgeries None recorded. Imaging electrocard iogram 2022 023 [email or web address] [facility], [address] [facility], [place], [address], 15:39:25 Medication Orders None recorded. Patient TargetsNo targets recorded. Patient Instructions Encounter Date Encounter Id Patient Instructions Last Modified By Organization Details Last Modified Time 04/12/2022 [id number] dizziness: care instructions [id number] Not available 04/12/2022 15:30:48 go to emergency room [email or web address] Not available 04/12/2022 15:34:26 Reason for Referral Emergency Medicine Referral for Dizziness Referring Physician: [facility], Encounter Date: 04/12/2022 Results Created Date Observation Date Name Description Value Unit Range Abnormal Flag Note LastModifiedBy Organization Detail LastModifiedTime 04/13/1904/13/2022 CBC WITH DIFFE RENTI AL/PL ATELE T WBC 7.5 x10e3 /uL 3.4-10 .8 Not Available [facility] [address] [place], [address], 04/13/2022 06:08:01 04/13/1904/13/2022 CBC WITH DIFFE RENTI AL/PL ATELE T RBC 3.89 x10e6 /uL 3.77-5 .28 Not Available [facility] ([facility]) [address] [place], [address], 04/13/2022 06:08:01 04/13/1904/13/2022 CBC WITH DIFFE RENTI AL/PL ATELE T hemoglobin 13.7 g/dL 11.1-1 5.9 Not Available [facility] ([facility]) [address] [place], [address], 04/13/2022 06:08:01 04/13/19 23 04/13/2022 CBC WITH DIFFE RENTI AL/PL ATELE T hematocrit 39.5 % 34.0-4 6.6 Not Available [facility]) [address] [facility], [place], [address], 04/13/2022 06:08:01 04/13/19 23 04/13/2022 CBC WITH DIFFE RENTI AL/PL ATELE T MCV 102 fL 79-97 above high normal Not Available [facility] ([facility]) [address] [place], [address], 04/13/2022 06:08:01 04/13/19 23 04/13/2022 CBC WITH DIFFE RENTI AL/PL ATELE T MCH 35.2 pg 26.6-3 3.0 above high normal Not Available [facility]) [address] [facility], [place], [address], 04/13/2022 06:08:01 04/13/19 23 04/13/2022 CBC WITH DIFFE RENTI AL/PL ATELE T MCHC 34.7 g/dL 31.5-3 5.7 Not Available [facility]) [address] [place], [address], 04/13/2022 06:08:01 04/13/19 23 04/13/2022 CBC WITH DIFFE RENTI AL/PL ATELE T RDW 13.2 % 11.7-1 5.4 Not Available [facility] ([facility]) [address] [place], [address], 04/13/2022 06:08:01 04/13/1904/13/2022 CBC WITH DIFFE RENTI AL/PL ATELE T platelets 267 x10e3 /uL 150-45 0 Not Available [facility]) [address] [place], [address], 04/13/2022 06:08:01 04/13/19 23 04/13/2022 CBC WITH DIFFE RENTI AL/PL ATELE T neutrophils 80 % not estab. Not Available [facility]) [address] [facility], [place], [address], 04/13/2022 06:08:01 04/13/19 23 04/13/2022 CBC WITH DIFFE RENTI AL/PL ATELE T lymphs 13 % not estab. Not Available [facility]) [address] [facility], [place], [address], 04/13/2022 06:08:01 04/13/19 23 04/13/2022 CBC WITH DIFFE RENTI AL/PL ATELE T monocytes 6 % not estab. Not Available [facility]) [address] [facility], [place], [address], 04/13/2022 06:08:01 04/13/19 23 04/13/2022 CBC WITH DIFFE RENTI AL/PL ATELE T eos 0 % not estab. Not Available [facility]) [address] [facility], [place], [address], 04/13/2022 06:08:01 04/13/19 23 04/13/2022 CBC WITH DIFFE RENTI AL/PL ATELE T basos 1 % not estab. Not Available [facility]) [address] [facility], [place], [address], 04/13/2022 06:08:01 04/13/19 23 04/13/2022 CBC WITH DIFFE RENTI AL/PL ATELE T immature cells MAIL WEIGHER Not Available [facility] [address] [facility], [place], [address], 04/13/2022 06:08:01 04/13/19 23 04/13/2022 CBC WITH DIFFE RENTI AL/PL ATELE T neutrophils (absolute) 6.0 x10e3 /uL 1.4-7. 0 Not Available [facility] [address] [facility], [place], [address], 04/13/2022 06:08:01 04/13/19 23 04/13/2022 CBC WITH DIFFE RENTI AL/PL ATELE T lymphs (absolute) 1.0 x10e3 /uL 0.7-3. 1 Not Available [facility] [address] [facility], [place], [address], 04/13/2022 06:08:01 04/13/1904/13/2022 CBC WITH DIFFE RENTI AL/PL ATELE T monocytes(ab solute) 0.4 x10e3 /uL 0.1-0. 9 Not Available [facility] [address] [facility], [place], [address], 04/13/2022 06:08:01 04/13/19 23 04/13/2022 CBC WITH DIFFE RENTI AL/PL ATELE T eos (absolute) 0.0 x10e3 /uL 0.0-0. 4 Not Available [facility] [address] [facility], [place], [address], 04/13/2022 06:08:01 04/13/19 23 04/13/2022 CBC WITH DIFFE RENTI AL/PL ATELE T baso (absolute) 0.0 x10e3 /uL 0.0-0. 2 Not Available [facility] [address] [facility], [place], [address], 04/13/2022 06:08:01 04/13/19 23 04/13/2022 CBC WITH DIFFE RENTI AL/PL ATELE T immature granulocytes 0 % not estab. Not Available [facility] [address] [facility], [place], [address], 04/13/2022 06:08:01 04/13/19 23 04/13/2022 CBC WITH DIFFE RENTI AL/PL ATELE T immature grans (abs) 0.0 x10e3 /uL 0.0-0. 1 Not Available [facility] [address] [facility], [place], [address], 04/13/2022 06:08:01 04/13/19 23 04/13/2022 CBC WITH DIFFE RENTI AL/PL ATELE T NRBC MAIL WEIGHER Not Available [facility] [address] [facility], [place], [address], 04/13/2022 06:08:01 04/13/19 23 04/13/2022 CBC WITH DIFFE RENTI AL/PL ATELE T hematology comments: MAIL WEIGHER Not Available [facility] [address] [facility], [place], [address], 04/13/2022 06:08:01 04/13/19 23 04/13/2022 COMP. METAB OLIC PANEL (14) glucose 130 mg/dL 70-99 above high normal Not Available [facility]) [address] [place], [address], 04/13/2022 08:07:25 04/13/19 23 04/13/2022 COMP. METAB OLIC PANEL (14) BUN 6 mg/dL 6-24 Not Available [facility] [address] [place], [address], 04/13/2022 08:07:25 04/13/19 23 04/13/2022 COMP. METAB OLIC PANEL (14) creatinine 0.58 mg/dL 0.57-1 .00 Not Available [facility] [address] [place], [address], 04/13/2022 08:07:25 04/13/19 23 04/13/2022 COMP. METAB OLIC PANEL (14) eGFR 104 mL/mi n/1.7 3 >59 Not Available [facility]) [address] [facility] [place], [address], 04/13/2022 08:07:25 04/13/19 23 04/13/2022 COMP. METAB OLIC PANEL (14) BUN/creatini ne ratio 10 9-23 Not Available [facility] [address] [facility] [place], [address], 04/13/2022 08:07:25 04/13/19 23 04/13/2022 COMP. METAB OLIC PANEL (14) sodium 134 mmol/ L 134-14 4 Not Available [facility] [address] [facility] [place], [address], 04/13/2022 08:07:25 04/13/19 23 04/13/2022 COMP. METAB OLIC PANEL (14) potassium 4.2 mmol/ L 3.5-5. 2 Not Available [facility] [address] [facility] [place], [address], 04/13/2022 08:07:25 04/13/19 23 04/13/2022 COMP. METAB OLIC PANEL (14) chloride 92 mmol/ L 96-106 below low normal Not Available [facility] [address] [facility] [place], [address], 04/13/2022 08:07:25 04/13/19 23 04/13/2022 COMP. METAB OLIC PANEL (14) carbon dioxide, total 26 mmol/ L 20-29 Not Available [facility] [address] [facility] [place], [address], 04/13/2022 08:07:25 04/13/19 23 04/13/2022 COMP. METAB OLIC PANEL (14) calcium 10.1 mg/dL 8.7-10 .2 Not Available [facility] [address] [place], [address], 04/13/2022 08:07:25 04/13/19 23 04/13/2022 COMP. METAB OLIC PANEL (14) protein, total 8.0 g/dL 6.0-8. 5 Not Available [facility]) [address] [place], [address], 04/13/2022 08:07:25 04/13/19 23 04/13/2022 COMP. METAB OLIC PANEL (14) albumin 5.1 g/dL 3.8-4. 9 above high normal Not Available [facility]) [address] [place], [address], 04/13/2022 08:07:25 04/13/19 23 04/13/2022 COMP. METAB OLIC PANEL (14) globulin, total 2.9 g/dL 1.5-4. 5 Not Available [facility] [address] [place], [address], 04/13/2022 08:07:25 04/13/19 23 04/13/2022 COMP. METAB OLIC PANEL (14) A/G ratio 1.8 1.2-2. 2 Not Available [facility] [address] [facility] [place], [address], 04/13/2022 08:07:25 04/13/19 23 04/13/2022 COMP. METAB OLIC PANEL (14) bilirubin, total 0.4 mg/dL 0.0-1. 2 Not Available [facility] [address] [place], [address], 04/13/2022 08:07:25 04/13/19 23 04/13/2022 COMP. METAB OLIC PANEL (14) alkaline phosphatase 52 IU/L 44-121 Not Available [facility] [address] [place], [address], 04/13/2022 08:07:25 04/13/19 23 04/13/2022 COMP. METAB OLIC PANEL (14) AST (SGOT) 35 IU/L 0-40 Not Available [facility] [address] [facility], [place], [address], 04/13/2022 08:07:25 04/13/19 23 04/13/2022 COMP. METAB OLIC PANEL (14) ALT (SGPT) 20 IU/L 0-32 Not Available [facility] [address] [facility], [place], [address], 04/13/2022 08:07:25 04/13/19 23 04/13/2022 HEPAT IC FUNCT ION PANEL (7) bilirubin, direct 0.12 mg/dL 0.00-0 .40 Not Available [facility] [address] [place], [address], 04/13/2022 08:07:26 04/13/19 23 04/12/2022 urina lysis , dipst ick Unknown Analyte Normal = light yellow Not Available [address] [place] [address], [address], 04/12/2022 14:17:02 04/13/19 23 04/12/2022 urina lysis , dipst ick Unknown Analyte Normal = clear Not Available [address] [place] [address], [address], 04/12/2022 14:17:02 04/13/19 23 04/12/2022 urina lysis , dipst ick Unknown Analyte Normal = negati ve Not Available [address] [place] [address], [address], 04/12/2022 14:17:02 04/13/19 23 04/12/2022 urina lysis , dipst ick Unknown Analyte Normal = Negati ve Not Available [facility], [place], [address], 04/12/2022 14:17:02 04/13/19 23 04/12/2022 urina lysis , dipst ick Unknown Analyte Normal = Negati ve Not Available [facility] [address], [place], [place], [address], 04/12/2022 14:17:02 04/13/1904/12/2022 urina lysis , dipst ick Unknown Analyte Normal = 1.010, 1.015, 1.020 Not Available bridget lopez [address], [place], [place], [address], 04/12/2022 14:17:02 04/13/19 23 04/12/2022 urina lysis , dipst ick Unknown Analyte Normal = Negati ve Not Available bridget lopez [address], [place], [place], [address], 04/12/2022 14:17:02 04/13/1904/12/2022 urina lysis , dipst ick Unknown Analyte Normal = 6.5, 7.0, 7.5, 8.0 Not Available [facility] [address], [place], [address], 04/12/2022 14:17:02 04/13/1904/12/2022 urina lysis , dipst ick Unknown Analyte Normal = Negati ve Not Available bridget lopez [address], [place], [address], 04/12/2022 14:17:02 04/13/19 23 04/12/2022 urina lysis , dipst ick Unknown Analyte Normal = Negati ve Not Available bridget lopez [address], [place], [address], 04/12/2022 14:17:02 04/13/19 23 04/12/2022 urina lysis , dipst ick Unknown Analyte Normal = Negati ve Not Available bridget lopez [address], [place], [address], 04/12/2022 14:17:02 04/13/19 23 04/12/2022 urina lysis , dipst ick Unknown Analyte Normal = 0.2, 1.0 Not Available bridget [address], [place], [address], 04/12/2022 14:17:02 04/13/19 23 04/12/2022 urina lysis , dipst ick Unknown Analyte Yellow Not Available [address], [place], [address], 04/12/2022 14:17:02 04/13/19 23 04/12/2022 urina lysis , dipst ick Unknown Analyte Clear Not Available [facility] [address], [place], [address], 04/12/2022 14:17:02 04/13/19 23 04/12/2022 urina lysis , dipst ick Unknown Analyte Negati ve Not Available bridget [address], [place], [address], 04/12/2022 14:17:02 04/13/19 23 04/12/2022 urina lysis , dipst ick Unknown Analyte Negati ve Not Available bridget [address], [place], [address], 04/12/2022 14:17:02 04/13/19 23 04/12/2022 urina lysis , dipst ick Unknown Analyte Trace Not Available [address], [place], [address], 04/12/2022 14:17:02 04/13/19 23 04/12/2022 urina lysis , dipst ick Unknown Analyte 1.030 Not Available [facility] [address], [place], [address], 04/12/2022 14:17:02 04/13/19 23 04/12/2022 urina lysis , dipst ick Unknown Analyte Trace- intact Not Available bridget [address], [place], [address], 04/12/2022 14:17:02 04/13/19 23 04/12/2022 urina lysis , dipst ick Unknown Analyte 6.0 Not Available [address], [place], [address], 04/12/2022 14:17:02 04/13/19 23 04/12/2022 urina lysis , dipst ick Unknown Analyte 300 mg/dL Not Available bridget lopez [address], [place], [address], 04/12/2022 14:17:02 04/13/19 23 04/12/2022 urina lysis , dipst ick Unknown Analyte 0.2 E.U./d L Not Available bridget lopez [address], [place], [address], 04/12/2022 14:17:02 04/13/19 23 04/12/2022 urina lysis , dipst ick Unknown Analyte Negati ve Not Available bridget lopez [address], [place], [address], 04/12/2022 14:17:02 04/13/19 23 04/12/2022 urina lysis , dipst ick Unknown Analyte Negati ve Not Available bridget lopez [address], [place], [address], 04/12/2022 14:17:02 04/13/1904/12/2022 gluco se, montye rstic k, blood blood sugar - non fasting 142 mg/dL 80-140 = normal Not Available braxton [address], [place], [address], 04/12/2022 14:16:49 04/13/19 23 04/12/2022 gluco se, finge rstic k, blood blood sugar - fasting mg/dL 80-125 = normal Not Available braxton [address], [place], [address], 04/12/2022 14:16:49 04/13/19 23 04/12/2022 elect rocar diogr am No observ ation record ed. [id number] pietro sy [address], [address], 04/12/2022 15:30:50 04/13/19 elect rocar diogr am No observ ation record ed. [id number] braxton [address], [address], 04/12/2022 18:38:23 Result Notes None recorded. Problems Name Problem SNOMED Code Status Onset Date Resolution Date Notes Provider Name and Address Organization Details Recorded Time Anxiety 52532784 Active 2022 [facility] 13:54:18 Malignant neoplasm of breast 824333016 Completed 202204/12/2022 [facility] 3 13:55:41 Problem Notes None recorded. Procedures Surgical History Date Name Laterality Status Provider Name and Address Organization Details Recorded Time excision of bilateral breasts completed Vandana Wooe PA - [facility] 04/12/2022 13:56:52 extraction of cataract completed Vandana Israel MCKEON - [facility] 04/12/2022 13:57:01 Imaging [...] numeric rating [Score] - Reported Oxygen saturation Heart rate Respiratory rate Body temperature Systolic And Diastolic Provider Name and Address Organization Details Last Updated DateTime 152.4 cm 29.9 kg/m2 40800.6 3 g 0 97 % 141 /min 18 /min 98.2 [degF] 162/93 mm[Hg] Vandana Israel MCKEON - [facility] 13:59:11 Social History Question Answer Notes LastModified by [employer] Details LastModified Time Tobacco Smoking Status Never Smoker Vandaan styles PA Trish [facility] 04/12/2022 13:56:28 Have You Recently Traveled Abroad? No Information not available 04/12/2022 Sex: Unknown Functional Status Question Answer Note LastModified by [employer] Details LastModified Time How many times per [...] Time Father Heart disease [email or web address] Not available 2022 13:54:57 Father Hypertensive disorder [email or web address] Not available [...] Recorded Time zoster recombinant 05/30/2021 completed Vandana Monfette null, PA - [facility] 04/12/2022 13:53:01 zoster recombinant 08/21/2021 completed Vandana Cifuentesfekendalle null, PA - [facility] 04/12/2022 13:53:01 COVID-19, mRNA, LNP-S, PF, 100 mcg/0.5mL dose or 50 mcg/0.25mL dose 09/26/2021 completed Vandana Cifuentesfekendalle null, PA - [facility] 04/12/2022 13:53:01 COVID-19 vaccine, vector-nr, rS-Ad26, PF, 0.5 mL 05/13/2020 completed Vandana Monfette null, PA - [facility] 04/12/2022 13:53:01 COVID-19 vaccine, vector-nr, rS-Ad26, PF, 0.5 mL 01/14/2021 completed Vandana Monfette null, PA - [facility] 04/12/2022 13:53:01 COVID-19, mRNA, LNP-S, bivalent, PF, 50 mcg/0.5 mL or 25mcg/0.25 mL dose 02/11/2022 completed Vandana Monfette null, PA - [facility] 04/12/2022 13:53:01 Tdap 09/23/2016 completed Vandana Cifuentesfette null, PA - [facility] 04/12/2022 13:53:01 Influenza, split virus, trivalent, PF 09/23/2016 completed Vandana Monfette null, PA - [facility] [...] ICD10 Code Diagnosis IMO Codes Diagnosis Note [id number] [place] [address] [address] 04/12/2022 13:46:45 04/12/2022 15:39:25 Dizziness [id number] R42 Health Concerns Section Related Observation LastModified by Organization Detai ls LastModified Time None Recorded Concern Status LastModified by Organization Details LastModified Time None Recorded Advance Directives Directive None Recorded Payers Insurance Date Sequence Insurance Name Policy Number Policy [place] Covered Member ID [place] Member ID Guarantor Name 06/08/2022 2 [place] Nan E Henry [id number] Lynn Henry 04/12/2022 1 MEDICARE B[place] [employer] Nan E Henry [id number] Lynn Floresd Notes Date Note Type Note [...] numbness.ROS as noted in the HPI ASHLEY BLACK MD [address] [facility] [place], [address], PA - [facility] 04/12/2022 15:41:08 OBGyn Episode No OBEpisode recorded.
--- OUTSIDE RECORDS SUMMARY | 2025-01-14 23:29 | XMS_ITS | Encounter Summary ---
Author Organization [employer] Address [address] [facility] 7 [place] [address] Care Team Providers Care Paper Tube Machine Operator Name Role Phone Unavailable Primary [...] 04/13/2025 8:30 AM EDT Office Visit Julio [facility] [address] [place] [address] Estephanie Morgan, VANNESA [address] [place] [address] documented as of this encounter Visit Diagnoses Not on filedocumented in this encounter Care Teams Paper Tube Machine Operator Relationship Specialty Start Date End Date Fatemeh [facility] [address] [facility] [address], [place] [address] Primary Care Provider 04/07/22 documented as of this encounter
--- OUTSIDE RECORDS SUMMARY | 2025-01-14 23:29 | XMS_ITS | Clinical Summary ---
Author Organization [employer] Address [address] [facility] [address] [place] [address] Care Team Providers Care Vehicle Detailer Name Role Phone Unavailable Primary Care Provider [...] 04/13/2025 8:30 AM EDT Office Visit Julio [facility] [address] [place] [address] Estephanie Morgan, OD [address] [place] [address] Health Maintenance Due Date Last Done Comments [...] 03/09/2008 Dental X-Ray: Full Mouth 03/13/2021 03/12/2018 COVID-19 Vaccine ( season) 2024 10/21/2023, 12/13/2022, 02/11/2022, Additional history exists Influenza Vaccine (#1) 2024 , 12/13/2022, 09/26/2021, [...] series) 2038 Zoster Vaccines Completed 08/21/2021, 05/30/2021 HIB Vaccines Aged Out No longer eligi [...] Most Recently Relevant to Health Maintenance Insurance [facility] STANDARD MEDICARE MEDICARE [place] STAND AD[place] MEDICARE [facility] ST[facility] Care Teams Vehicle Detailer Relationship Specialty Start Date End Date Fatemeh Leyva [facility] [address] [facility] [address], [place] [address] Primary Care Provider 04/07/22
--- OUTSIDE RECORDS SUMMARY | 2025-01-14 23:29 | XMS_ITS | Encounter Summary ---
Author Organization [employer] Address [address] [facility] 7 [place] [address] Care Team Providers Care Renewable Energy Trader Name Role Phone Unavailable Primary Care Provider [...] 04/13/2025 8:30 AM EDT Office Visit Julio [facility] [address] [place] [address] Estephanie Morgan, VANNESA [address] [place] [address] documented as of this encounter Visit Diagnoses Not on filedocumented in this encounter Care Teams Renewable Energy Trader Relationship Specialty Start Date End Date Fatemeh [facility] [address] [facility] [address], [place] [address] Primary Care Provider 04/07/22 documented as of this encounter
--- OUTSIDE RECORDS SUMMARY | 2025-01-14 23:29 | XMS_ITS | Encounter Summary ---
Author Organization [email or web address] Address [address] [facility] [address] [place] [address] Care Team Providers Care Corporate Compliance Director Name Role Phone Unavailable Primary Care Provider [...] 04/13/2025 8:30 AM EDT Office Visit Julio [facility] [address] [place] [address] Estephanie Morgan, VANNESA [address] [place] [address] documented as of this encounter Visit Diagnoses Not on filedocumented in this encounter Care Teams Corporate Compliance Director Relationship Specialty Start Date End Date Fatemeh [facility] [address] [facility] [address], [place] [address] Primary Care Provider 04/07/22 documented as of this encounter
--- OUTSIDE RECORDS SUMMARY | 2025-01-14 23:29 | XMS_ITS | Encounter Summary ---
Author Organization [employer] Address [address] [facility] [address] [place] [address] Care Team Providers Care Medical Appointment Scheduler Name Role Phone Unavailable Primary Care Provider [...] 04/13/2025 8:30 AM EDT Office Visit Julio [facility] [address] [place] [address] Estephanie Morgan, VANNESA [address] [place] [address] documented as of this encounter Visit Diagnoses Not on filedocumented in this encounter Care Teams Medical Appointment Scheduler Relationship Specialty Start Date End Date Fatemeh [facility] [address] [facility] [address], [place] [address] Primary Care Provider 04/07/22 documented as of this encounter
--- OUTSIDE RECORDS SUMMARY | 2025-01-14 23:29 | XMS_ITS | Encounter Summary ---
Author Organization [employer] Address [address] [facility] [address] [place] [address] Care Team Providers Care Preschool Assistant Principal Name Role Phone Unavailable Primary Care Provider [...] 04/13/2025 8:30 AM EDT Office Visit Julio [facility] [address] [place] [address] Estephanie Morgan, VANNESA [address] [place] [address] documented as of this encounter Visit Diagnoses Not on filedocumented in this encounter Care Teams Preschool Assistant Principal Relationship Specialty Start Date End Date Fatemeh [facility] [address] [facility] [address], [place] [address] Primary Care Provider 04/07/22 documented as of this encounter
--- OUTSIDE RECORDS SUMMARY | 2025-01-14 23:29 | XMS_ITS | Encounter Summary ---
Author Organization [employer] Address [address] [place] [address] Care Team Providers Care Assistant Business Manager Name Role Phone Unavailable Primary Care [...] 04/13/2025 8:30 AM EDT Office Visit Julio [facility] [address] [place] [address] Estephanie Morgan, VANNESA [address] [place] [address] documented as of this encounter Visit Diagnoses Not on filedocumented in this encounter Care Teams Assistant Business Manager Relationship Specialty Start Date End Date [facility] [address] [facility] [address], [place] [address] Primary Care Provider 04/07/22 documented as of this encounter
== END 2025-01-14 15:31 | disposition home or self-care (01) ==
PROVIDERS: PCP Internal Medicine; Visit Provider Physician Assistant
DX: R11.2 Nausea with vomiting, unspecified (principal); R19.7 Diarrhea, unspecified

== ENCOUNTER 2025-01-14 14:57 | Outpatient (REF) | payer MEDICARE, MEDICAID, SELFPAY ==
[2025-01-14 18:08] LABS: Resp Syncy Virus RNA Qual PCR NEGATIVE (Negative); SARS COV2 PCR INHOUSE NEGATIVE (Negative)
== END 2025-01-14 14:58 | disposition home or self-care (01) ==
LOC: HO.LNP 14:57
PROVIDERS: Physician Assistant; PCP Internal Medicine
DX: R11.2 Nausea with vomiting, unspecified (principal); R19.7 Diarrhea, unspecified; R09.89 Other specified symptoms and signs involving the circulatory and respiratory systems; Z03.818 Encounter for observation for suspected exposure to other biological agents ruled out
CPT/HCPCS: 87637; 99212